=== PATIENT | female | born 1955 | race Caucasian/White ===

== ENCOUNTER → 2024-10-20 | Outpatient (CLI) | payer MEDICARE, BC, SELFPAY ==
[2024-10-20 10:05] LABS: Misc Send Out* See Sep Rpt
[2024-10-20 10:44] LABS: Basophils # (Auto) 0.1 Thou/mm3 (0.0-0.2); Basophils % (Auto) 1 % (0-2.5); Eosinophils % (Auto) 1 % (0-10); Hematocrit 38.9 % (36.0-46.0); Hemoglobin 13.5 g/dL (12.0-16.0); Immature Granulocytes % (Auto) 0 % (0-0); Immature Granulocytes Auto 0.01 Thou/mm3 (0.00-0.00); Lymphocytes % (Auto) 25 % (10-50); Mean Corpuscular HGB Conc 34.7 g/dl (31.0-37.0); Mean Corpuscular Hemoglobin 32.3 pg (25.0-35.0); Mean Corpuscular Volume 93 fL (80-100); Monocytes # (Auto) 0.5 Thou/mm3 (0.0-0.8); Monocytes % (Auto) 11 % (0-12); Neutrophils # (Auto) 2.7 Thou/mm3 (1.8-7.7); Neutrophils % (Auto) 63 % (37-80); Nucleated Red Blood Cell % 0 /100 WBC (0); Platelet Count 221 Thou/mm3 (140-440); Red Blood Count 4.18 Miln/mm3 (4.00-5.20); White Blood Count 4.3 Thou/mm3 (3.6-11.0)
[2024-10-20 19:03] LABS: Alanine Aminotransferase 25 U/L (10-49); Albumin, Serum 4.6 gm/dL (3.4-4.8); Alkaline Phosphatase 78 U/L (46-116); Amylase 66 U/L (30-118); Anion Gap 9 (7-16); Aspartate Amino Transferase 24 U/L (0-34); BUN/Creatinine Ratio 23 Ratio (12-20); Bilirubin,Total 0.6 mg/dL (0.3-1.2); Blood Urea Nitrogen 14 mg/dL (9-23); Calcium 9.6 mg/dL (8.3-10.6); Calcium (Corrected) 9.6 mg/dL (8.5-10.1); Carbon Dioxide 28.4 mMol/L (20.0-31.0); Chloride 94 mMol/L (98-107); Creatine Kinase 98 U/L (34-171); Creatinine (Component) 0.6 mg/dL (0.6-1.3); Free T4 (Free Thyroxine) 1.11 ng/dL (0.89-1.76); Globulin 2.3 gm/dL (2.3-3.5); Glucose 81 mg/dL (74-106); Lipase 41 U/L (12-53); Magnesium 2.2 mg/dL (1.6-2.6); Osmolality,Calculated 262 (275-295); Potassium 4.2 mMol/L (3.4-5.1); Sodium 131 mMol/L (136-145); Thyroid Stimulating Hormone 0.77 uIU/mL (0.55-4.78); Total Protein 6.9 gm/dL (5.7-8.2); Uric Acid 2.9 mg/dL (3.1-7.8); eGFR > 60 See Note
[2024-10-20 19:29] LABS: Folate > 24.00 ng/mL (>5.38); Follicle Stimulating Hormone 157.81 mIU/mL (See Note); Vitamin B12 1095 pg/mL (211-911)
[2024-10-20 20:56] LABS: Ferritin 250 ng/mL (7.3-270.7); Iron 114 mcg/dL (50-170); Percent Iron Saturation 32 % (20-55); T4 (Thyroxine) 6.1 mcg/dL (4.5-10.9); Total Iron Binding Capacity 346 mcg/dL (250-425); Unsaturated Iron Binding 232 (225-295)
[2024-10-21 14:31] LABS: RA Screen Negative (Negative)
[2024-10-29 06:17] LABS: ANA Screen, IFA NEGATIVE (NEGATIVE); T3,Total* 142 ng/dL (76-181)
[2024-10-29 06:18] LABS: Cortisol,total,LC/MS/MS* 13.1 mcg/dL; DHEA Sulfate* 44 mcg/dL (12-133); Estradiol, Ultrasensitive* <4 pg/mL; Estrogen, Total, Serum* 89 pg/mL; Gamma Glutamyl Transpeptidase* 12 U/L (3-65); Insulin* 2.2 uIU/mL (< OR = 18.4); Luteinizing Hormone* 43.8 mIU/mL; Progesterone,LC/MS* 0.2 ng/mL; Sex Hormone Binding Globulin* 112 nmol/L (14-73); Testosterone, Free,Dialysis 3.3 pg/mL (0.1-6.4); Testosterone, Total, Dialysis 57 ng/dL (2-45); Thyroglobulin Antibodies* <1 IU/mL (< OR = 1); Thyroid Peroxidase Antibodies* 76 IU/mL (<9); Vitamin B1 (Thiamine)* 23 nmol/L (8-30); Vitamin B6, Plasma* 21.1 ng/mL (2.1-21.7)
== END | disposition home or self-care (01) ==
LOC: COPL 08:18
PROVIDERS: PCP Nurse Practitioner Family; Referring Provider Anesthesiology; Visit Provider Anesthesiology
DX: E56.9 Vitamin deficiency, unspecified (principal); K90.9 Intestinal malabsorption, unspecified; E50.9 Vitamin A deficiency, unspecified; E87.1 Hypo-osmolality and hyponatremia; L98.9 Disorder of the skin and subcutaneous tissue, unspecified; Z71.2 Person consulting for explanation of examination or test findings; E67.8 Other specified hyperalimentation
CPT/HCPCS: 36415; 80053; 82150; 82306; 82465; 82533; 82550; 82607; 82627; 82670; 82672; 82679; 82728; 82746; 82977; 83001; 83002; 83036; 83525; 83540; 83550; 83690; 83698; 83718; 83721; 83735; 83880; 84144; 84207; 84252; 84270; 84402; 84403; 84425; 84436; 84439; 84443; 84478; 84480; 84481; 84550; 84591; 85025; 86021; 86038; 86141; 86376; 86430; 86800

== ENCOUNTER → 2024-12-16 | Outpatient (CLI) | payer MEDICARE, BC, SELFPAY ==
[2024-12-16 09:35] LABS: Misc Send Out* See Sep Rpt
[2024-12-16 10:06] LABS: Glucose Estimated Average 100 mg/dL (80-131); Hemoglobin A1C 5.1 % Hgb (4.8-6.0)
[2024-12-16 10:09] LABS: Cardiac Risk Estimate 2.3 RATIO (3.7-5.6); Cholesterol 238 mg/dL (132-200); HDL Cholesterol 102 mg/dL (40-60); LDL Cholesterol,Calculated 127 mg/dL (0-130); Triglycerides 45 mg/dL (30-150)
[2024-12-22 07:16] LABS: Direct LDL* 126 mg/dL (<100)
[2024-12-22 07:17] LABS: hs-CRP* 0.2 mg/L
== END | disposition home or self-care (01) ==
LOC: COPL 08:38
PROVIDERS: PCP Naturopath; Referring Provider Anesthesiology; Visit Provider Anesthesiology
DX: K90.9 Intestinal malabsorption, unspecified (principal); M25.50 Pain in unspecified joint; E16.2 Hypoglycemia, unspecified; R00.2 Palpitations; E87.1 Hypo-osmolality and hyponatremia; E56.9 Vitamin deficiency, unspecified; E53.8 Deficiency of other specified B group vitamins; M62.50 Muscle wasting and atrophy, not elsewhere classified, unspecified site; Q78.2 Osteopetrosis; E55.9 Vitamin D deficiency, unspecified
CPT/HCPCS: 36415; 80061; 83036; 83721; 83880; 86141

== ENCOUNTER 2025-05-20 02:10 | Emergency (ER) | payer MEDICARE, BC, SELFPAY ==
[2025-05-20] VITALS (11 sets, daily range): BP systolic 85–166; BP diastolic 58–96; PULSE 66–136; RESP 12–24; TEMP 36.4–37.1; O2SAT 97–100; BMI 16.8
--- NOTE | 2025-05-20 02:12 | EKG_ITS ---
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
--- NOTE | 2025-05-20 02:30 | EDNOTE_ITS ---
ED Arrhythmia Palp. RME/HPI General Chief Complaint: Arrhythmia/Palpitations Stated Complaint: PALPITATIONS Time Seen by Provider: 05/20/25 02:24 Arrival date/time: 05/20/25 02:10 RME / HPI RME / HPI narrative: Dr. Galvez?s Main ED Evaluation: 70yo female with a history tachyarrhythmia currently being evaluated by manufacturing development engineer without specific therapy in place with intermittent recurrent palpitations, most recent episode beginning at 0000 upon using restroom. Patient felt sudden onset of palpitations, lightheadedness, dizziness, and near syncope. Symptoms persisted and she presented to ED for evaluation. Patient notes hx malnutrition/malabsorption and receives IV supplements on a regular basis by her PMD. No reported fever, chills, or vomiting. No generalized fatigue or recent weight loss. PMH includes tachyar rhythmia; no hx DM, asthma, or HTN. PSH noncontributory. Related Data Home Medications ?Medication ?Instructions ?Recorded ?Confirmed Calcium Carbonate (Calcium) ##0 10/05/14 cholecalciferol (vitamin D3) 25 1,000 unit PO QDAY #0 tabs 10/05/14 mcg (1,000 unit) capsule (Vitamin D3) magnesium 200 mg tablet 200 mg PO BID #0 tabs thyroid (pork) 60 mg tablet 60 mg PO QDAY #0 tabs 09/08 06/21 ([place] Thyroid) vitamin B complex (Complex B-100 1 ea PO ##0 10/05/14 tablet,extended release) Previous Rx's ?Medication ?Instructions ?Recorded diltiazem HCl 120 mg 120 mg PO QAM #30 caps 05/20 capsule,extended release 24 hr (Cardizem CD) Allergies Allergy/AdvReac Type Severity Reaction Status Date / Time Penicillins Allergy Unknown Verified 10/05/14 10:49 Review of Systems Review of Systems Systems Reviewed: All systems reviewed, normal except as documented Past Medical History Social History SMOKING STATUS: Never smoker ED Exam Narrative Physical exam: GENERAL APPEARANCE: alert and oriented x 4, chronically-ill appearing, no acute distress VITALS: All vitals were reviewed and the pulse ox is 100% on room air, which is normal according to my interpretation. Notably tachycardic. HEENT: Normocephalic, atraumatic; pupils equal, round, reactive to light; EOMI; mucous membranes pink, moist; oropharynx clear NECK: Supple, no JVD LUNGS: CTABL; no wheezes, no rales, no rhonchi HEART: Tachycardic, regular rhythm; normal S1, S2; no murmurs ABDOMEN: non distended; normal BS; soft, no tenderness BACK: no CVA tenderness EXTREMITIES: atraumatic; no edema, no calf tenderness NEUROLOGIC: awake; alert and oriented x4; cranial nerves II-XII grossly intact; no focal sensory or motor deficits PSYCHIATRIC: appropriate mood and affect SKIN: warm, dry, normal color; no rashes Course Quality Measures none Orders Category Date Time Status EKG (ED ONLY) *Do not use* NOW Care 05/20/25 02:12 Completed EKG (ED Only) Stat Exams 05/20/25 02:12 Draft Vital Signs Vital signs: Vital Signs Temperature 97.5 F 05/20/25 02:16 Pulse Rate 136 H 05/20/25 02:16 Respiratory Rate 18 05/20/25 02:16 Blood Pressure 166/81 H 05/20/25 02:16 Pulse Oximetry (%) 100 05/20/25 02:16 Oxygen Delivery Method Room Air 05/20/25 02:16 PROCEDURES: Procedure Comment ASA 1, Mallapati 2, [id number] time: 25 minutes After consent was obtained and placed on traffic monitor specialist, patient underwent procedural sedation with RT and nurse at bedside. Fentanyl and Etomidate given with adequate sedation obtained. Patient underwent cardioversion x1 at 100 joules with conversion to sinus rhythm. Patient tolerated procedure well without any complications. Procedural Sedation Indication: other (cardioversion) Presedation Evaluation: Patient is AAOx4, communicating appropriately. Preparation: traffic monitor specialist applied, pulse oximeter, supplemental O2 applied, suction/airway equipment at bedside and IV secured Fentanyl: IV Fentanyl dose (mcg): 50 IV Etomidate dose (mg): 10 Patient Tolerated Procedure: well and no complications Arrhythmia/Palpitations MDM Narrative MDM Narrative:: Scribe Attestation: 05/20/25 - Mima Duckworth am scribing for and in the presence of Dr. Galvez. 70yo female with a history tachyarrhythmia currently being evaluated by manufacturing development engineer without specific therapy in place with intermittent recurrent palpitations, most recent episode beginning at 0000 upon using restroom. Patient felt sudden onset of palpitations, lightheadedness, dizziness, and near syncope. Please see PE findings. Laboratory markers are essentially unremarkable, including troponin which is undetected. Patient immediately triaged to monitor bed and was found to be in atrial flutter with a rate of 160. Patient hydrated with saline to correct volume deficit and given IV beta blockade without effect. Repeat EKG demonstrated slight reduction in heart rate, although remained in atrial flutter. Discussed options with family and patient underwent successful cardioversion (see procedure note). Patient currently in sinus rhythm with a rate in the 70s and remained hemodynamically stable. Will start patient beta angeline vs CCB with recommended close cardiology follow-up. Patient is stable to be discharged home. Patient data External records reviewed:: [facility] previous records (Per chart review, patient has no previous ED visits or admissions to this facility.) Clinical information provided by:: patient Social determinants that could affect healthcare access:: none Patient has the following chronic illnesses:: none How is presenting disease/condition affected by chronic disease/condition?: no chronic disease Evaluation data The following diagnostics were reviewed and interpreted by me:: lab results and EKG tracing(s) Lab and/or radiology exams considered but not ordered:: none Interpretation Summary: CXR shows no cardiomegaly, no pleural effusions, no infilrates, according to my interpretation. EKG done at 0216, atrial flutter, rate of 136, 1-1 conduction, classic soft- tooth pattern, right axis deviation, no acute ST segment changes, no ectopy, according to my interpretation. EKG done at 0415, atrial flutter, rate of 128, 1-1 conduction, no acute ST segment elevation, early repolarization, no ectopy, right axis deviation, according to my interpretation. EKG done at 0502, sinus rhythm, rate of 75, no acute pathological ST segment changes, no ectopy, right axis deviation, according to my interpretation. Medications / Prescriptions Medications or Prescriptions considered but not ordered:: none Medication administrations:: metoprolol, NS, fentanyl, etomidate Consultations Consultation(s) initiated? (list below): No Diagnosis Differential diagnosis arrhythmia/palpitations: palpitations, anxiety, sinus tachycardia, artial fibrillation, artial flutter and supraventricular tachycardia Most likely diagnosis given after review of the tests above:: new onset atrial flutter Admission Indicated Admission indicated?: not indicated Admission Request Was there a request for admission?: No Disposition Plan Disposition Plan: Discharge Discharge Attestation Discharge Attestation: The patient and all family members were given an opportunity to ask questions and understood the discharge instructions. Discharge instructions specifically effects, indications for sooner follow up or return to the emergency department, and the expected course of current diagnosis. Patient condition: Stable Critical Care Time Critical Care Time Critical Care Time: Yes (Critical care time spent with this patient was 45 minutes ) Total Critical Care Time (min.): 45 Attestation: Critical care time spent with this patient was 45 minutes requiring my immediate intervention and after prevent hemodynamic compromise secondary to tachyarrhythmia. This was inclusive of continuous bedside management, review of laboratory or radiographic data, serial examinations, not including billed procedures. Discharge Plan Plan Patient Disposition: HOME (Self Care) Discharge Disposition comment: Stable Prescriptions/Referrals Prescriptions/Med Rec: New diltiazem HCl [Cardizem CD] 120 mg capsule,extended release 24hr 120 mg PO QAM Qty: 30 1RF No Action vitamin B complex [Complex B-100] 1 EACH tablet extended release 1 ea PO Qty: 0 cholecalciferol (vitamin D3) [Vitamin D3] 1,000 UNIT tablet 1,000 unit PO QDAY Qty: 0 magnesium 200 MG tablet 200 mg PO BID Qty: 0 thyroid (pork) [[place] Thyroid] 60 MG tablet 60 mg PO QDAY Qty: 0 Calcium Carbonate (Calcium) 600 MG tablet Qty: 0 Referrals: FINA DOBBINS [Primary Care Provider] - In 1 week Problem List Clinical Impression: New onset atrial flutter Patient/Caregiver Discharge Instructions Discharge Activity: activity as tolerated Education Materials: ED About Arrhythmias Additional Instructions: Will begin Cardizem CD 120 daily. Follow-up with manufacturing development engineer within 1 to 2 weeks. Return if worsening Print Language: Egyptian Stand Alone Forms: [place] Award Info., Patient Portal Info Letter
[2025-05-20] MEDS: SODIUM CHLORIDE 0.9% 1000 ML 1,000 ML 999 ML IV ×2 (02:38→06:25)
--- NOTE | 2025-05-20 02:47 | XR_ITS ---
Examination: AP chest single view Technique one AP portable upright chest single view Date and time: May 20, 2025 0246 hours INDICATIONS: Chest pain today FINDINGS: Normal heart size. Accentuation basilar bronchovascular markings. Stable biapical pleural thickening Prominent osteopenia. No interval pneumonia IMPRESSION: Basilar bronchitis pattern
[2025-05-20 03:00] LABS: Basophils # (Auto) 0.1 Thou/mm3 (0.0-0.2); Basophils % (Auto) 1 % (0-2.5); Eosinophils # (Auto) 0.1 Thou/mm3 (0.0-0.5); Eosinophils % (Auto) 2 % (0-10); Hematocrit 42.6 % (36.0-46.0); Hemoglobin 14.9 g/dL (12.0-16.0); Immature Granulocytes Auto 0.02 Thou/mm3 (0.00-0.00); Lymphocytes # (Auto) 1.3 Thou/mm3 (1.0-4.8); Lymphocytes % (Auto) 20 % (10-50); Mean Corpuscular HGB Conc 35.0 g/dl (31.0-37.0); Mean Corpuscular Hemoglobin 33.1 pg (25.0-35.0); Mean Corpuscular Volume 95 fL (80-100); Monocytes # (Auto) 0.4 Thou/mm3 (0.0-0.8); Monocytes % (Auto) 7 % (0-12); Neutrophils # (Auto) 4.6 Thou/mm3 (1.8-7.7); Neutrophils % (Auto) 71 % (37-80); Nucleated Red Blood Cell # 0.00 Thou/mm3 (0.00-0.00); Nucleated Red Blood Cell % 0 /100 WBC (0); Platelet Count 234 Thou/mm3 (140-440); RDW Standard Deviation 41.9 fL (36.4-46.3); Red Blood Count 4.50 Miln/mm3 (4.00-5.20); White Blood Count 6.5 Thou/mm3 (3.6-11.0)
[2025-05-20 03:14] LABS: INR 1.0 (0.9-1.3); Prothrombin Time 10.8 Seconds (9.0-12.2)
[2025-05-20 03:21] LABS: Alanine Aminotransferase 25 U/L (10-49); Albumin, Serum 4.5 gm/dL (3.4-4.8); Albumin/Globulin Ratio 1.8 (1.2-2.2); Alkaline Phosphatase 83 U/L (46-116); Anion Gap 9 (7-16); Aspartate Amino Transferase 29 U/L (0-34); BUN/Creatinine Ratio 27 Ratio (12-20); Bilirubin,Total 0.5 mg/dL (0.3-1.2); Blood Urea Nitrogen 16 mg/dL (9-23); Calcium 9.3 mg/dL (8.3-10.6); Calcium (Corrected) 9.3 mg/dL (8.5-10.1); Carbon Dioxide 27.1 mMol/L (20.0-31.0); Chloride 97 mMol/L (98-107); Creatinine (Component) 0.6 mg/dL (0.6-1.3); Estimated Creatinine Clearance 61.0 mL/min (>60); Globulin 2.5 gm/dL (2.3-3.5); Glucose 94 mg/dL (74-106); Magnesium 1.9 mg/dL (1.6-2.6); Osmolality,Calculated 267 (275-295); Potassium 4.2 mMol/L (3.4-5.1); Sodium 133 mMol/L (136-145); Total Protein 7.0 gm/dL (5.7-8.2); Troponin I < 0.020 ng/mL (0.0-0.045); eGFR > 60 See Note
[2025-05-20 03:31] LABS: B-Type Natriuretic Peptide 162 pg/mL (0-100)
[2025-05-20] MEDS: METOPROLOL TARTRATE INJ 1 MG/ML AMP 5 ML 5 MG IVP (03:37)
--- NOTE | 2025-05-20 04:11 | EKG_ITS ---
[facility] Test Date: 2025-05-20 Pat Name: CHETAN LORENZ Department: Room: - Gender: Female Architectural Engineer: : 1955 Requested By: Dino Abbott Order Number: [id number] Reading MD: Dino Abbott Measurements Intervals [place] Rate: 127 P: [place]: QRS: 78 QRSD: 89 T: 74 QT: 328 QTc: 478 Interpretive Statements ATRIAL FLUTTER/TACHYCARDIA WITH RAPID VENTRICULAR RESPONSE MARKED ST ELEVATION, CONSIDER INFERIOR INJURY [MARKED ST ELEVATION W/O NORMALLY INFLECTED T-WAVE IN II/aVF] ACUTE [place] Compared to ECG 05/20/2025 02:16:31 ST (T wave) deviation now present Myocardial infarct finding now present Intraventricular conduction delay no longer present /store/S0/[id number]
[2025-05-20] MEDS: fentaNYL CIT INJ 50 mCg/ML AMP 2ML IVP (05:01)
[2025-05-20] MEDS: ETOMIDATE INJ 2 MG/ML VIAL 10 ML 10 MG IVP (05:02)
[2025-05-20] MEDS: DILTIAZEM CD 120 MG CAPCR PO (06:25)
== END 2025-05-20 06:41 | disposition home or self-care (01) ==
PROVIDERS: Emergency Provider Emergency Medicine; PCP Nurse Practitioner Family
DX: I48.92 Unspecified atrial flutter (principal)
CPT/HCPCS: 36415; 71045; 80053; 83735; 83880; 84484; 85025; 85610; 92960; 93005; 96361; 96374; 96375; 99283; J3010; J3490; J7030; A9270